=== PATIENT | male | born 1980 | race Caucasian/White ===

== ENCOUNTER 2018-08-27 18:51 | Emergency (ER) | payer OTHER ==
[2018-08-27] MEDS ORDERED: MORPHINE SULFATE 8 MG/ML VIAL ONE (19:21)
[2018-08-27] MEDS ORDERED: ONDANSETRON ODT 4 MG TAB ONE (19:21)
[2018-08-27] MEDS ORDERED: CYCLOBENZAPRINE HCL 10 MG TABLET ONE (21:15)
[2018-08-27] MEDS ORDERED: KETOROLAC TROMETHAMINE 60 MG/2 ML VIAL ONE (21:21)
== END 2018-08-27 21:34 | disposition home or self-care (01) ==
LOC: EDH 18:51
DX: S33.5XXA Sprain of ligaments of lumbar spine, initial encounter (principal); Z88.0 Allergy status to penicillin; X50.1XXA Overexertion from prolonged static or awkward postures, initial encounter; Y93.89 Activity, other specified; Y92.89 Other specified places as the place of occurrence of the external cause; Y99.8 Other external cause status
CPT/HCPCS: 72131; 96372 ×2; 99284; J1885; J2270